=== PATIENT | male | born 1975 | race Caucasian/White ===

== ENCOUNTER 2018-03-27 17:44 | Emergency (ER) | payer MEDICAID ==
[~2018-03-27] VITALS: Wt 94.2 kg
[2018-03-27] MEDS ORDERED: KETOROLAC 30 MG INJ IV STA (18:42)
[2018-03-27] MEDS ORDERED: SOD CHLORIDE 0.9% 1,000 ML IV STA (18:42)
[2018-03-27] MEDS ORDERED: morphine 4 MG/ML VIAL IV STA (18:42)
[2018-03-27] MEDS ORDERED: TRAM50TA PO (19:52)
[2018-03-27] MEDS ORDERED: IBUP-1542 PO (19:52)
--- NOTE | 2018-03-27 19:56 | ERD ---
ER Documentation Chief Complaint Chief Complaint L flank pain worse today; hx kidney stones. HPI This 42-year-old male presents with a history of kidney stones. He was seen at another hospital he has an appointment pending and all of your for urology in the next 2 weeks. He ran out of pain medication his pain became worse this mo rning. Denies any fevers. He has intermittent mild hematuria. ROS All systems reviewed and are negative except as per history of present illness. Medications Home Meds Active Scripts Ibuprofen* (Motrin*) 600 Mg Tab, 600 MG PO Q6, #30 TAB Prov:ISRRAEL KAM MD 03/27/18 Tramadol Hcl* (Ultram*) 50 Mg Tablet, 50 MG PO Q6H PRN for PAIN, #20 TAB Prov:ISRRAEL KAM MD 03/27/18 Allergies Allergies: Coded Allergies: No Known Allergy (Unverified , 03/27/18) PMhx/Soc Hx Alcohol Use: No Hx Substance Use: No Hx Tobacco Use: No Smoking Status: Never smoker FmHx Family History: No diabetes, No coronary disease, No other Physical Exam Vitals Vital Signs Date Temp Pulse Resp B/P (MAP) Pulse Ox O2 O2 Flow FiO2 Time Delivery Rate 03/27/18 98.2 74 18 136/86 98 Room Air 20:08 (103) 03/27/18 98.8 70 20 155/97 97 17:55 (116) Physical Exam Const: No acute distress Head: Atraumatic Eyes: Normal Conjunctiva ENT: Normal External Ears, Nose and Mouth. Neck: Full range of motion. No meningismus. Resp: Clear to auscultation bilaterally Cardio: Regular rate and rhythm, no murmurs Abd: Soft, non tender, non distended. Normal bowel sounds. Mild tender left mid abdominal tenderness and left lower abdominal tenderness. No tenderness McBurney's point no Marie sign. Skin: No petechiae or rashes Back: No midline or flank tenderness Ext: No cyanosis, or edema Neur: Awake and alert Psych: Normal Mood and Affect Result Diagram: 03/27/180 03/27/180 Results 24 hrs Laboratory Tests Test 03/27/18 18:50 White Blood Count 13.6 10^3/ul Red Blood Count 5.39 10^6/ul Hemoglobin 16.0 g/dl Hematocrit 46.3 % Mean Corpuscular Volume 85.9 fl Mean Corpuscular Hemoglobin 29.7 pg Mean Corpuscular Hemoglobin Concent 34.6 g/dl Red Cell Distribution Width 11.9 % Platelet Count 202 10^3/UL Mean Platelet Volume 11.1 fl Immature Granulocytes % 0.400 % Neutrophils % 81.9 % Lymphocytes % 9.5 % Monocytes % 7.7 % Eosinophils % 0.2 % Basophils % 0.3 % Nucleated Red Blood Cells % 0.0 /100WBC Immature Granulocytes # 0.050 10^3/ul Neutrophils # 11.1 10^3/ul Lymphocytes # 1.3 10^3/ul Monocytes # 1.0 10^3/ul Eosinophils # 0.0 10^3/ul Basophils # 0.0 10^3/ul Nucleated Red Blood Cells # 0.0 10^3/ul Urine Color YELLOW Urine Clarity SLIGHTLY CLOUDY Urine pH 6.0 Urine Specific [place] 1.021 Urine Ketones NEGATIVE mg/dL Urine Nitrite NEGATIVE mg/dL Urine Bilirubin NEGATIVE mg/dL Urine Urobilinogen NEGATIVE mg/dL Urine Leukocyte Esterase NEGATIVE Danii/ul Urine Microscopic RBC > 182 /HPF Urine Microscopic WBC 3 /HPF Urine Bacteria FEW /HPF Urine Mucus MODERATE /HPF Urine Hemoglobin 3+ mg/dL Urine Glucose NEGATIVE mg/dL Urine Total Protein 1+ mg/dl Sodium Level 143 mmol/L Potassium Level 4.4 mmol/L Chloride Level 99 mmol/L Carbon Dioxide Level 32 mmol/L Anion Gap 12 Blood Urea Nitrogen 13 mg/dl Creatinine 0.87 mg/dl Est Glomerular Filtrat Rate mL/min > 60 mL/min Glucose Level 123 mg/dl Calcium Level 9.3 mg/dl Total Bilirubin 0.3 mg/dl Direct Bilirubin 0.00 mg/dl Indirect Bilirubin 0.3 mg/dl Aspartate Amino Transf (AST/SGOT) 40 IU/L Alanine Aminotransferase (ALT/SGPT) 62 IU/L Alkaline Phosphatase 133 IU/L Total Protein 8.5 g/dl Albumin 4.7 g/dl Globulin 3.80 g/dl Albumin/Globulin Ratio 1.23 Lipase 54 U/L Current Medications Medications Dose Sig/Violet Start Time Status Last (Trade) Ordered Route PRN Stop Time Admin Dose Reason Admin Sodium 1,000 ml @ Q1H STAT 03/27/18 DC 03/27/18 Chloride 1,000 mls/hr IV 18:42 18:59 03/27/18 19:41 Morphine 4 mg ONCE STAT 03/27/18 DC 03/27/18 Sulfate IV 18:42 19:00 (morphine) 03/27/18 18:43 Ketorolac 30 mg ONCE STAT 03/27/18 DC 03/27/18 Tromethamine IV 18:42 19:00 (Toradol) 03/27/18 18:43 Procedures/MDM CBC shows a white blood cell count 13.6, possibly stress response given additional findings without significant infection. Urine shows hemoglobin without white blood cells, leukocytes. CMP shows no significant acute abnormalities normal creatinine. Limited renal ultrasound shows possible calyectasis with possible renal pelvis cysts and 4 mm stone in the inferior pelvis. No significant hydronephrosis. Patient's pain was improved with Toradol, Zofran and Motrin for pain. Patient shows no evidence of septic stone or signs of additional causes of acute abdomen such as appendicitis, obstruct ion, surgical abdomen. We will treat with tramadol, ibuprofen, and recommendations for follow-up. The patient was stable with no new complaints during the ER course. Clinically, there is no current evidence to suggest meningitis, sepsis, acute abdomen, pneumonia, stroke, acute coronary syndrome, pulmonary embolism, aortic dissection or any other emergent condition appearing to require further evaluation or hospitalization. Patient counseled regarding my diagnostic impression and care plan. Prior to discharge all questions answered. Pt agrees with treatment plan and understands strict return precautions. Pt is instructed to follow up with primary care provider within 24- 48 hours. Precautionary instructions provided including instructions to return to the ER if not improving or for any worsening or changing symptoms or concerns. Departure Diagnosis: Primary Impression: Renal colic Condition: Stable Patient Instructions: Kidney Stone W/ Colic Additional Instructions: Va al lucas doctor/ specialista para mas evaluacon en el proximo semana. posiblemente necesita autorizado de lucas doctor primario para specialista. Regresa para fiebre, o mas o nueva simptomas. ISRRAEL KAM MD Mar 27, 2018 19:56
[2018-03-27 20:08] VITALS: BP 136/86; PULSE 74; RESP 18
== END 2018-03-27 20:15 | disposition home or self-care (01) ==
LOC: FTE 17:44
DX: N23 Unspecified renal colic (principal)
CPT/HCPCS: 36415; 76775; 80053; 81001; 83690; 85025; 96374; 96375; J1885; J2270; J7030; Z7502